=== PATIENT | female | born 1995 | race Two or more races ===

== ENCOUNTER 2024-06-15 10:49 | Emergency (ER) | payer OTHER, MEDICAID ==
[~2024-06-15] VITALS: Ht 165.1 cm; Wt 95.3 kg
[2024-06-15 13:05] VITALS: BP 109/66; TEMP 98.3; O2SAT 99
== END 2024-06-15 13:05 | disposition home or self-care (01) ==
LOC: ER 10:59
DX: O26.892 Other specified pregnancy related conditions, second trimester (principal); R10.2 Pelvic and perineal pain; Z3A.21 21 weeks gestation of pregnancy; V89.2XXA Person injured in unspecified motor-vehicle accident, traffic, initial encounter; Y93.89 Activity, other specified; Y92.488 Other paved roadways as the place of occurrence of the external cause; Y99.8 Other external cause status
CPT/HCPCS: 76805-TC